=== PATIENT | male | born 1940 | race Caucasian/White ===

== ENCOUNTER 2020-09-13 07:05 | Outpatient (REF) | payer MEDICARE, SELFPAY ==
[2020-09-13 08:45] LABS: Prostate Specific Antigen 0.26 ng/mL (<0.05-4.0)
== END 2020-09-13 07:06 | disposition home or self-care (01) ==
LOC: HO.LAB 07:05
PROVIDERS: PCP Internal Medicine; Visit Provider Urology
DX: Z12.5 Encounter for screening for malignant neoplasm of prostate (principal); R97.20 Elevated prostate specific antigen [PSA]
CPT/HCPCS: 84153

== ENCOUNTER → 2020-11-28 13:47 | Outpatient (BNVA) | payer MEDICARE, SELFPAY | PROVIDERS: PCP Internal Medicine; Visit Provider Urology | DX: Z13.89 Encounter for screening for other disorder (principal) | CPT/HCPCS: Q3014 ==

== ENCOUNTER 2021-03-19 09:41 | Outpatient (REF) | payer MEDICARE, SELFPAY ==
[2021-03-19 12:10] LABS: Prostate Specific Antigen 0.23 ng/mL (<0.05-4.0)
== END 2021-03-19 09:42 | disposition home or self-care (01) ==
LOC: HO.HMGCLDS 09:41
PROVIDERS: PCP Internal Medicine; Visit Provider Urology
DX: N40.1 Benign prostatic hyperplasia with lower urinary tract symptoms (principal); N13.8 Other obstructive and reflux uropathy; C61 Malignant neoplasm of prostate
CPT/HCPCS: 36415; 84153

== ENCOUNTER → 2021-03-29 13:49 | Outpatient (BNVA) | payer MEDICARE, SELFPAY | PROVIDERS: PCP Internal Medicine; Visit Provider Urology | DX: Z13.89 Encounter for screening for other disorder (principal) | CPT/HCPCS: 99212 ==

== ENCOUNTER 2021-04-09 06:33 | Outpatient (REF) | payer MEDICARE, SELFPAY ==
[2021-04-09 08:36] LABS: Hematocrit 42.1 % (42-52); Hemoglobin 13.9 g/dl (14.0-18.0); Mean Corpuscular Hemoglobin 30.7 pg (27.0-33.0); Mean Corpuscular Volume 92.9 fL (80-98); Mean Platelet Volume 10.7 fL (9.4-12.4); Platelet Count 174 X10*3/uL (160-400); Red Blood Count 4.53 X10*6/uL (4.60-5.80); Red Cell Distribution Width 12.1 % (11.0-16.0); White Blood Count 5.7 X10*3/uL (4.8-10.8)
[2021-04-09 09:01] LABS: Alanine Aminotransferase 11 U/L (0-40); Albumin Level 4.3 g/dL (3.5-5.0); Alkaline Phosphatase 56 U/L (39-117); Anion Gap 15 (12-20); Aspartate Amino Transferase 21 U/L (5-37); Blood Urea Nitrogen 16 mg/dL (9-16); Calcium 9.6 mg/dL (8.4-10.2); Carbon Dioxide 25 mmol/L (22-29); Chloride 104 mmol/L (96-108); Cholesterol 135 mg/dL; Estimated Glomerular Filt Rate > 60; Glucose Fasting 99 mg/dL (60-99); HDL Cholesterol 37 mg/dL; LDL Cholesterol Calculated 77 mg/dl; Potassium 4.8 mmol/L (3.3-5.1); Sodium 139 mmol/L (135-145); Total Protein 6.8 g/dL (6.5-8.0); Triglycerides 105 mg/dL
[2021-04-09 09:26] LABS: Prostate Specific Antigen 0.19 ng/mL (<0.05-4.0)
== END 2021-04-09 06:34 | disposition home or self-care (01) ==
LOC: HO.LAB 06:33
PROVIDERS: Urology; PCP Internal Medicine; Visit Provider Internal Medicine
DX: Z12.5 Encounter for screening for malignant neoplasm of prostate (principal); C61 Malignant neoplasm of prostate; E78.5 Hyperlipidemia, unspecified; I10 Essential (primary) hypertension; I48.92 Unspecified atrial flutter
CPT/HCPCS: 36415; 80053; 80061; 84153; 85027

== ENCOUNTER 2021-09-13 07:05 | Outpatient (REF) | payer MEDICARE, SELFPAY ==
[2021-09-13 09:26] LABS: PSA,Total (Free>4and<10) 0.17 ng/mL (0.00-4.00)
== END 2021-09-13 07:06 | disposition home or self-care (01) ==
LOC: HO.LAB 07:05
PROVIDERS: PCP Internal Medicine; Visit Provider Urology
DX: Z12.5 Encounter for screening for malignant neoplasm of prostate (principal); C61 Malignant neoplasm of prostate
CPT/HCPCS: 36415; 84153

== ENCOUNTER → 2021-09-20 08:47 | Outpatient (BNVA) | payer MEDICARE, SELFPAY | PROVIDERS: PCP Internal Medicine; Visit Provider Urology | DX: R39.15 Urgency of urination (principal); C61 Malignant neoplasm of prostate | CPT/HCPCS: Q3014 ==

== ENCOUNTER 2022-03-26 09:46 | Outpatient (REF) | payer MEDICARE, SELFPAY ==
[2022-03-26 11:06] LABS: Prostate Specific Antigen 0.15 ng/mL (<0.05-4.0)
== END 2022-03-26 09:47 | disposition home or self-care (01) ==
LOC: HO.LAB 09:46
PROVIDERS: PCP Internal Medicine; Visit Provider Urology
DX: C61 Malignant neoplasm of prostate (principal); Z12.5 Encounter for screening for malignant neoplasm of prostate
CPT/HCPCS: 36415; 84153

== ENCOUNTER → 2022-04-02 08:23 | Outpatient (BNVA) | payer MEDICARE, SELFPAY | PROVIDERS: PCP Internal Medicine; Visit Provider Urology | DX: C61 Malignant neoplasm of prostate (principal); Z92.3 Personal history of irradiation | CPT/HCPCS: Q3014 ==